=== PATIENT | female | born 1960 | race African-American/Black ===

== ENCOUNTER 2018-10-17 15:14 | Outpatient (CLI) | payer BC | END 2018-10-17 15:15 | disposition home or self-care (01) | LOC: BICMAMMO 15:14 | PROVIDERS: ATTEND Physician Assistant Medical | DX: Z12.31 Encounter for screening mammogram for malignant neoplasm of breast (principal); Z80.3 Family history of malignant neoplasm of breast; Z85.89 Personal history of malignant neoplasm of other organs and systems | CPT/HCPCS: 77063; 77067 ==

== ENCOUNTER 2018-10-17 15:49 | Outpatient (CLI) | payer BC ==
--- NOTE | 2018-10-17 16:49 | RAD ---
LEFT HIP TWO VIEWS: 10/17/2018 PROVIDED CLINICAL HISTORY: Hip pain. FINDINGS: No evidence for fracture or other acute osseous abnormality. Alignment appears anatomic. Left hip j oint space appears preserved. IMPRESSION: No evidence for an acute osseous abnormality or significant arthropathy. POS: OFF
--- NOTE | 2018-10-17 16:50 | RAD ---
RIGHT HIP RADIOGRAPHS TWO VIEWS: 10/17/2018 PROVIDED CLINICAL HISTORY: Hip pain. FINDINGS: No evidence for fracture or other acute osseous abnormality. Alignment appears anatomic. Right hip joint space appears preserved. IMPRESSION: No evidence for an acute osseous abnormality or significant arthropathy. POS: OFF
--- NOTE | 2018-10-17 18:55 | RAD ---
LUMBAR SPINE RADIOGRAPH TWO VIEWS: 10/17/18 PROVIDED CLINICAL HISTORY: Back pain. FINDINGS: Five nonribbearing lumbar type vertebral bodies are present. Lumbar alignment appears normal. Vertebr al body heights appear preserved. Disc space narrowing and end plate degenerative change are noted at L4-5. Lower lumbar spine and facet arthritis is seen. Vascular calcifications are noted. Cholecystec thanh clips are seen. IMPRESSION: Lower lumbar spine degenerative change. POS: OFF
--- NOTE | 2018-10-17 18:57 | RAD ---
LEFT FOOT RADIOGRAPH THREE VIEWS: 10/17/18 PROVIDED CLINICAL HISTORY: Foot pain. FINDINGS: Mild degenerative change at the first MTP joint. No evidence for fracture or other acute osseous abno rmality. Alignment appears anatomic. Joint spaces appear preserved. Small posterior calcaneal entheso phyte. IMPRESSION: Mild first MTP joint degenerative change. POS: OFF
--- NOTE | 2018-10-17 18:59 | RAD ---
RIGHT FOOT RADIOGRAPHS THREE VIEWS: 10/17/18 PROVIDED CLINICAL HISTORY: Right foot pain. FINDINGS: There is no evidence for fracture or other acute osseous abnormality. Alignment appears anatomic. Chelsy nt spaces appear preserved. Mild first MTP joint degenerative changes are present. IMPRESSION: Mild first MTP joint degenerative change. POS: OFF
== END 2018-10-17 15:50 | disposition home or self-care (01) ==
LOC: BICRAD 15:49
PROVIDERS: ATTEND Family Medicine
DX: M79.18 Myalgia, other site (principal); M19.071 Primary osteoarthritis, right ankle and foot; M19.072 Primary osteoarthritis, left ankle and foot; M47.816 Spondylosis without myelopathy or radiculopathy, lumbar region
CPT/HCPCS: 72100

== ENCOUNTER 2021-05-08 13:35 | Outpatient (CLI) | payer BC | END 2021-05-08 13:36 | disposition home or self-care (01) | LOC: BICMAMMO 13:35 | PROVIDERS: ATTEND Family Medicine | DX: Z12.31 Encounter for screening mammogram for malignant neoplasm of breast (principal) | CPT/HCPCS: 77063; 77067 ==

== ENCOUNTER 2021-12-23 07:23 | Outpatient (CLI) | payer BC ==
[2021-12-23] MEDS ORDERED: Iopamidol 370 76% 100 ML VIAL ONE (09:37)
== END 2021-12-23 07:24 | disposition home or self-care (01) ==
LOC: BICCT 07:23
PROVIDERS: ATTEND Physician Assistant Medical
DX: R10.32 Left lower quadrant pain (principal); K57.92 Diverticulitis of intestine, part unspecified, without perforation or abscess without bleeding; K57.30 Diverticulosis of large intestine without perforation or abscess without bleeding
CPT/HCPCS: 74177; 82565; Q9967

== ENCOUNTER 2022-12-10 11:44 | Outpatient (CLI) | payer BC | END 2022-12-10 11:45 | disposition home or self-care (01) | LOC: BICMAMMO 11:44 | PROVIDERS: ATTEND Family Medicine | DX: Z12.31 Encounter for screening mammogram for malignant neoplasm of breast (principal); Z80.3 Family history of malignant neoplasm of breast | CPT/HCPCS: 77063; 77067 ==

== ENCOUNTER 2023-12-15 13:44 | Outpatient (CLI) | payer BC | END 2023-12-15 13:45 | disposition home or self-care (01) | LOC: BICMAMMO 13:44 | PROVIDERS: ATTEND Family Medicine | DX: Z12.31 Encounter for screening mammogram for malignant neoplasm of breast (principal); Z80.3 Family history of malignant neoplasm of breast | CPT/HCPCS: 77063; 77067 ==

== ENCOUNTER 2024-03-10 03:13 | Emergency (ER) | payer BC ==
[2024-03-10] MEDS ORDERED: Lidocaine 1% w/Epinephrine 1:100K 20 ML VIAL ONE (03:30)
[2024-03-10] MEDS ORDERED: Boostrix 0.5 ML (Tdap) VIAL (>/=7 yrs of age) ONE (03:36)
[2024-03-10] MEDS ORDERED: Triple Antibiotic Oint 1 GM Packet ONE (04:08)
[2024-03-10] MEDS ORDERED: Acetaminophen 500 MG TAB ONE (04:08)
== END 2024-03-10 06:45 | disposition home or self-care (01) ==
LOC: ERS 03:13
DX: S01.81XA Laceration without foreign body of other part of head, initial encounter (principal); F17.210 Nicotine dependence, cigarettes, uncomplicated; I10 Essential (primary) hypertension; F10.129 Alcohol abuse with intoxication, unspecified; Z55.6 Problems related to health literacy; Z23 Encounter for immunization; W01.0XXA Fall on same level from slipping, tripping and stumbling without subsequent striking against object, initial encounter
CPT/HCPCS: 12002; 70450; 72125; 90471; 90715

== ENCOUNTER 2025-05-24 11:11 | Outpatient (CLI) | payer MEDICARE | END 2025-05-24 11:12 | disposition home or self-care (01) | LOC: BICMAMMO 11:11 | PROVIDERS: ATTEND Family Medicine | DX: Z12.31 Encounter for screening mammogram for malignant neoplasm of breast (principal); Z80.3 Family history of malignant neoplasm of breast; Z85.828 Personal history of other malignant neoplasm of skin | CPT/HCPCS: 77063; 77067 ==